=== PATIENT | female | born 1925 | race Caucasian/White ===

== ENCOUNTER 2017-04-03 02:30 | Emergency (ER) | payer OTHER ==
[~2017-04-03] VITALS: Ht 160 cm; Wt 48.1 kg
--- NOTE | 2017-04-03 02:30 | NUR ---
89 YO FEMALE BB RA FROM [facility]. PT IS ALERT X 1, CONFUSED. PER EMS, PT WAS SOB AT SNF, EMS STARED BY ON CPAP. PT DS TO ER BED, SKIN WARM AND DRY, RR EVEN AND UNLABORED. 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 AWAITING ORDER FROM PROVIDER
[2017-04-03 02:35] VITALS: BP 183/64
--- NOTE | 2017-04-03 02:35 | NUR ---
RT AT BED SIDE FOR BIPAP SET UP
--- NOTE | 2017-04-03 02:35 | NUR ---
PT RECIEVED ON CPAP MASK 15L. SOB AND DIMINISHED B/S NOTED. PT PLACED ON BIPAP PER DR TRICIA CORNELL. ALARMS ARE SET AND AUDIBLE PER POLICY. AMBU BAG BEDSIDE. BIPAP PLUGGED INTO RED OUTLET. WILL CONTINUE TO MONITOR. Addendum: 04/03/17 at 0315 by JULIANA CONKLIN RT Amended: Links added.
--- NOTE | 2017-04-03 02:41 | NUR ---
CALLED RADIOLOGY FOR CHEST X RAY
[2017-04-03] MEDS ORDERED: DEXAMETHASONE SOD PHOSPHATE 10 MG/ML VIAL ONE (02:58)
[2017-04-03 02:59] LABS: HEMATOCRIT 29 % (33-45); HEMOGLOBIN 8.2 g/dL (11.5-14.8); MEAN CORPUSCULAR HEMOGLOBIN 16 PG (26.0-33.0); MEAN CORPUSCULAR HGB CONC 28 g/dl (31.0-36.0); MEAN CORPUSCULAR VOLUME 56 fL (82-100); PLATELET COUNT (AUTO) 321 /CMM (150-450); RDW COEFFICIENT OF VARIATION 24.5 (11.5-15.0); RED BLOOD CELL COUNT(AUTO) 5.26 MIL/uL (4.0-5.2); WHITE BLOOD COUNT (AUTO) 16.4 K/uL (4.3-11.0)
[2017-04-03] MEDS ORDERED: DEXAMETHASONE SOD PHOSPHATE 10 MG/ML VIAL IV ONE (03:00)
[2017-04-03] MEDS ORDERED: IPRATROPIUM NEB FS 0.5 MG/2.5 ML AMPUL.NEB NEB ONE (03:00)
[2017-04-03] MEDS ORDERED: ALBUTEROL FS 2.5 MG/3 ML VIAL.NEB CONTNEB ONE (03:00)
[2017-04-03 03:08] LABS: ABG BASE EXCESS -4.5 mmol/L; ABG OXYGEN SATURATION 44.9 % (92.0-98.5); ABG PCO2 59.9 mmHg (35.0-45.0); ABG PH 7.211 (7.350-7.450); ABG PO2 32.5 mmHg (75.0-100.0); COHb 1.5 % (0.5-1.5); MetHb 1.2 % (0.0-1.5); O2Hb 43.7 % (94.0-97.0); PEEP,BG 5 cm H2O; VENT MODE, BG ST 14 15/5 40%
[2017-04-03 03:15] LABS: CALCIUM, SERUM 9.7 mg/dL (8.5-10.1); CARBON DIOXIDE 27 mmol/L (21-32); CHLORIDE 107 mmol/L (98-107); CREATININE 0.8 mg/dL (0.6-1.3); GLUCOSE 182 mg/dL (74-106); POTASSIUM 4.6 mmol/L (3.5-5.1); SODIUM SERUM 140 mmol/L (136-145); UREA NITROGEN, BLOOD 20 mg/dL (7-18)
[2017-04-03] MEDS ORDERED: IPRATROPIUM NEB FS 0.5 MG/2.5 ML AMPUL.NEB ONE (03:20)
[2017-04-03] MEDS ORDERED: ALBUTEROL FS 2.5 MG/3 ML VIAL.NEB ONE (03:20)
[2017-04-03 03:27] LABS: B-TYPE NATRIURETIC PEPTIDE 313 PG/ML (0-125)
[2017-04-03 03:31] VITALS: BP 113/97
[2017-04-03] MEDS ORDERED: ONDANSETRON HCL/PF 4 MG/2 ML VIAL ONE (03:51)
[2017-04-03] MEDS ORDERED: MORPHINE SULFATE INJ 2 MG/ML DISP.SYRIN ONE (03:52)
[2017-04-03] MEDS ORDERED: FUROSEMIDE 20 MG/2 ML VIAL IV ONE (04:00)
[2017-04-03] MEDS ORDERED: DOXYCYCLINE 100 MG in IV D5W 100 ML IV ONE (04:00)
[2017-04-03] MEDS ORDERED: MORPHINE SULFATE INJ 2 MG/ML DISP.SYRIN IV ONE (04:00)
[2017-04-03] MEDS ORDERED: ONDANSETRON HCL/PF 4 MG/2 ML VIAL IV ONE (04:00)
[2017-04-03] MEDS ORDERED: DOXYCYCLINE 100 MG VIAL ONE (04:02)
[2017-04-03] MEDS ORDERED: FUROSEMIDE 20 MG/2 ML VIAL ONE (04:02)
[2017-04-03 04:03] LABS: LYMPHOCYTES % (MANUAL) 5 % (16-48); METAMYELOCYTES % 1 % (0-0); NEUTROPHILS % (MANUAL) 94 (42-76)
[2017-04-03 04:47] LABS: ABG BASE EXCESS -1.4 mmol/L; ABG OXYGEN SATURATION 75.4 % (92.0-98.5); ABG PCO2 60.9 mmHg (35.0-45.0); ABG PH 7.251 (7.350-7.450); ABG PO2 50.2 mmHg (75.0-100.0); COHb 1.3 % (0.5-1.5); MetHb 0.8 % (0.0-1.5); O2Hb 73.8 % (94.0-97.0); SITE, ABG LEFT ARM; VENT MODE, BG S/T 15/5 BR 14 40%
--- NOTE | 2017-04-03 04:47 | NUR ---
bipap rate increased to 20. pt tolerating bipap well.
[2017-04-03 04:55] VITALS: BP 131/78
--- NOTE | 2017-04-03 05:59 | NUR ---
Call from [facility]. Accepted to [facility] ER by Dr Levy. Eta [phone]. # for report [phone]
[2017-04-03 06:00] VITALS: BP 137/90
--- NOTE | 2017-04-03 06:00 | NUR ---
REPORT GIVEN TO NATALIA ACHARYA FOR [facility]
--- NOTE | 2017-04-03 06:28 | NUR ---
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 AWAITING ORDERS FROM PROVIDER
--- NOTE | 2017-04-03 06:59 | NUR ---
REPORT GIVEN TO [facility] TEAM FOR TRANPSORT
== END 2017-04-03 07:12 | disposition short-term general hospital (02) ==
LOC: ER 02:32
DX: J96.00 Acute respiratory failure, unspecified whether with hypoxia or hypercapnia (principal); J44.1 Chronic obstructive pulmonary disease with (acute) exacerbation; I11.0 Hypertensive heart disease with heart failure; I50.9 Heart failure, unspecified; K21.9 Gastro-esophageal reflux disease without esophagitis; F03.90 Unspecified dementia, unspecified severity, without behavioral disturbance, psychotic disturbance, mood disturbance, and anxiety; F32.9 Major depressive disorder, single episode, unspecified; R79.89 Other specified abnormal findings of blood chemistry; Z85.3 Personal history of malignant neoplasm of breast; Z98.890 Other specified postprocedural states
CPT/HCPCS: 36415; 36600; 71010-TC; 80048-TC; 82803-TC; 83880; 85025-TC; A4606; J1100; J1940; J2270; J2405; J3490; J7060; Z7610